=== PATIENT | female | born 1935 | race Caucasian/White ===

== ENCOUNTER → 2017-01-15 | Outpatient (CLI) | payer MEDICARE, BC | LOC: WCC 10:16 | DX: L97.329 Non-pressure chronic ulcer of left ankle with unspecified severity (principal); L97.819 Non-pressure chronic ulcer of other part of right lower leg with unspecified severity; I87.2 Venous insufficiency (chronic) (peripheral) | CPT/HCPCS: 17716; A6212; G0463 ==

== ENCOUNTER → 2017-01-23 | Outpatient (CLI) | payer MEDICARE, BC | LOC: WCC 09:20 | DX: L97.829 Non-pressure chronic ulcer of other part of left lower leg with unspecified severity (principal); L97.819 Non-pressure chronic ulcer of other part of right lower leg with unspecified severity; I87.2 Venous insufficiency (chronic) (peripheral) | CPT/HCPCS: 17716; A6212; G0463 ==

== ENCOUNTER → 2017-01-30 | Outpatient (CLI) | payer MEDICARE, BC | LOC: WCC 09:17 | DX: L97.819 Non-pressure chronic ulcer of other part of right lower leg with unspecified severity (principal); I87.2 Venous insufficiency (chronic) (peripheral) | CPT/HCPCS: 17716; 27510; A6197; A6212; G0463 ==

== ENCOUNTER → 2017-02-06 | Outpatient (CLI) | payer MEDICARE, BC | LOC: WCC 12:36 | DX: L97.819 Non-pressure chronic ulcer of other part of right lower leg with unspecified severity (principal); L97.829 Non-pressure chronic ulcer of other part of left lower leg with unspecified severity; I87.2 Venous insufficiency (chronic) (peripheral) | CPT/HCPCS: 17717; A6212; G0463 ==

== ENCOUNTER → 2017-02-20 | Outpatient (CLI) | payer MEDICARE, BC | LOC: WCC 08:46 | DX: L97.829 Non-pressure chronic ulcer of other part of left lower leg with unspecified severity (principal); L97.819 Non-pressure chronic ulcer of other part of right lower leg with unspecified severity; I87.2 Venous insufficiency (chronic) (peripheral) | CPT/HCPCS: 16847; 17716; 27510; A6197; A6212; G0463 ==

== ENCOUNTER → 2017-02-27 | Outpatient (CLI) | payer MEDICARE, BC | LOC: WCC 10:06 | DX: L97.819 Non-pressure chronic ulcer of other part of right lower leg with unspecified severity (principal); L97.829 Non-pressure chronic ulcer of other part of left lower leg with unspecified severity; I87.2 Venous insufficiency (chronic) (peripheral) | CPT/HCPCS: 17716; 27510; A6197; A6212; G0463 ==

== ENCOUNTER → 2017-03-13 | Outpatient (CLI) | payer MEDICARE, BC | LOC: WCC 09:02 | DX: L97.329 Non-pressure chronic ulcer of left ankle with unspecified severity (principal); L97.829 Non-pressure chronic ulcer of other part of left lower leg with unspecified severity; I87.2 Venous insufficiency (chronic) (peripheral) | CPT/HCPCS: 17716; 27510; A6197; A6212; G0463 ==

== ENCOUNTER → 2017-03-27 | Outpatient (CLI) | payer MEDICARE, BC | LOC: WCC 03-25 09:25 | DX: L97.829 Non-pressure chronic ulcer of other part of left lower leg with unspecified severity (principal); I87.2 Venous insufficiency (chronic) (peripheral) | CPT/HCPCS: 17716; A6212; G0463 ==

== ENCOUNTER → 2017-04-03 | Outpatient (CLI) | payer MEDICARE, BC | LOC: WCC 04-02 10:09 | DX: L97.829 Non-pressure chronic ulcer of other part of left lower leg with unspecified severity (principal); I87.2 Venous insufficiency (chronic) (peripheral) | CPT/HCPCS: 17717; A6212; G0463 ==

== ENCOUNTER → 2017-04-10 | Outpatient (CLI) | payer MEDICARE, BC | LOC: WCC 13:59 | DX: L97.829 Non-pressure chronic ulcer of other part of left lower leg with unspecified severity (principal) | CPT/HCPCS: 17716; A6212; G0463 ==

== ENCOUNTER → 2017-04-19 | Outpatient (CLI) | payer MEDICARE, BC | LOC: WCC 12:58 | DX: L97.829 Non-pressure chronic ulcer of other part of left lower leg with unspecified severity (principal); I87.2 Venous insufficiency (chronic) (peripheral) | CPT/HCPCS: 17717; 21064; A6021; A6212; G0463 ==

== ENCOUNTER → 2017-04-26 | Outpatient (CLI) | payer MEDICARE, BC | LOC: WCC 04-18 10:23 | DX: L97.929 Non-pressure chronic ulcer of unspecified part of left lower leg with unspecified severity (principal); I87.2 Venous insufficiency (chronic) (peripheral) | CPT/HCPCS: 17716; 27510; A6197; A6212; G0463 ==

== ENCOUNTER → 2017-09-16 | Outpatient (CLI) | payer MEDICARE, BC ==
[2017-09-16 09:55] LABS: INR 1.5 (0.8-3.0); PROTHROMBIN TIME 17.8 SECONDS (9.7-12.8)
== END ==
LOC: COL.LAB 09:34
PROVIDERS: Family Medicine
DX: I48.2 Chronic atrial fibrillation (principal)

== ENCOUNTER → 2017-09-30 | Outpatient (CLI) | payer MEDICARE, BC ==
[2017-09-30 11:22] LABS: INR 3.1 (0.8-3.0); PROTHROMBIN TIME 37.3 SECONDS (9.7-12.8)
== END ==
LOC: COL.LAB 10:08
PROVIDERS: Family Medicine
DX: I48.2 Chronic atrial fibrillation (principal)

== ENCOUNTER → 2017-10-14 | Outpatient (CLI) | payer MEDICARE, BC | LOC: COL.LAB 10:01 | DX: Z79.01 Long term (current) use of anticoagulants (principal) ==

== ENCOUNTER → 2017-10-25 | Outpatient (CLI) | payer MEDICARE, BC ==
[2017-10-25 10:27] LABS: INR 2.8 (0.8-3.0); PROTHROMBIN TIME 33.6 SECONDS (9.7-12.8)
== END ==
LOC: COL.LAB 09:27
PROVIDERS: Family Medicine
DX: Z79.01 Long term (current) use of anticoagulants (principal)

== ENCOUNTER → 2017-11-08 | Outpatient (CLI) | payer MEDICARE, BC ==
[2017-11-08 10:19] LABS: INR 2.4 (0.8-3.0); PROTHROMBIN TIME 28.8 SECONDS (9.7-12.8)
[2017-11-08 10:20] LABS: PH 7 (5-8); SQUAMOUS EPITHELIAL None Seen /hpf; URINE APPEARANCE Clear; URINE BACTERIA None Seen /hpf; URINE BILIRUBIN Negative (NEGATIVE); URINE BLOOD Negative (NEGATIVE); URINE COLOR Yellow; URINE GLUCOSE Negative (NEGATIVE); URINE KETONE Negative (NEGATIVE); URINE LEUKOCYTE ESTERASE Negative (NEGATIVE); URINE NITRATE Negative (NEGATIVE); URINE PROTEIN(semi-quant) Negative (NEGATIVE); URINE RBC 0-2 /hpf; URINE UROBILINOGEN Negative (NEGATIVE); URINE WBC None Seen /hpf
[2017-11-08 10:33] LABS: COLLECTION METHOD CLEAN CATCH
== END ==
LOC: COL.LAB 09:42
PROVIDERS: Family Medicine
DX: N39.0 Urinary tract infection, site not specified (principal)

== ENCOUNTER → 2017-12-04 | Outpatient (CLI) | payer MEDICARE, BC ==
[2017-12-04 10:28] LABS: INR 2.7 (0.8-3.0); PROTHROMBIN TIME 30.9 SECONDS (9.7-12.8)
[2017-12-04 22:14] LABS: PH 7 (5-8); SQUAMOUS EPITHELIAL None Seen /hpf; URINE APPEARANCE Clear; URINE BACTERIA None Seen /hpf; URINE BILIRUBIN Negative (NEGATIVE); URINE BLOOD Negative (NEGATIVE); URINE COLOR Yellow; URINE GLUCOSE Negative (NEGATIVE); URINE KETONE Negative (NEGATIVE); URINE LEUKOCYTE ESTERASE Negative (NEGATIVE); URINE NITRATE Negative (NEGATIVE); URINE PROTEIN(semi-quant) Negative (NEGATIVE); URINE RBC 0-2 /hpf; URINE UROBILINOGEN Negative (NEGATIVE); URINE WBC 0-2 /hpf
[2017-12-04 22:22] LABS: COLLECTION METHOD CLEAN CATCH
== END ==
LOC: COL.LAB 09:23
PROVIDERS: Family Medicine
DX: I48.2 Chronic atrial fibrillation (principal); Z79.01 Long term (current) use of anticoagulants

== ENCOUNTER → 2018-04-01 | Outpatient (CLI) | payer MEDICARE, BC ==
[2018-04-01 17:39] LABS: INR 3.2 (0.8-3.0); PROTHROMBIN TIME 36.7 SECONDS (9.7-12.8)
== END ==
LOC: COL.LAB 16:38
PROVIDERS: Family Medicine
DX: Z79.01 Long term (current) use of anticoagulants (principal)

== ENCOUNTER → 2018-04-24 | Outpatient (CLI) | payer MEDICARE, BC ==
[2018-04-24 09:59] LABS: BASO % 0.7 % (0.0-2.0); EOS # 0.2 (0.0-0.7); EOS % 3.4 % (0-4.0); GRAN # 2.2 (1.4-6.5); GRAN % 49.4 % (42.2-75.2); HEMATOCRIT 40.3 % (37.0-47.0); HEMOGLOBIN 13.3 g/dl (12.5-16.0); LYMPH # 1.5 (1.2-3.4); LYMPH % 33.1 % (20.0-51.0); MEAN CELL VOLUME 91 fl (80.0-100.0); MEAN CORPUSCULAR HEMOGLOBIN 30 pg (27.0-31.0); MEAN CORPUSCULAR HGB CONC 33 g/dl (33.0-37.0); MONO # 0.6 (0.1-0.6); MONO % 13.2 % (1.7-9.3); PLATELET COUNT 228 K/mm3 (130-400); RED BLOOD COUNT 4.43 M/mm3 (4.10-5.30); REDCELL DISTRIBUTION WIDTH-CV 13.1 % (11.5-14.5)
[2018-04-24 10:03] LABS: INR 2.6 (0.8-3.0); PROTHROMBIN TIME 29.4 SECONDS (9.7-12.8)
[2018-04-24 10:11] LABS: ALBUMIN 4.1 gm/dL (3.5-5.0); BILIRUBIN,TOTAL 0.6 mg/dL (0.0-1.0); CALCIUM 9.1 mg/dL (8.4-10.2); CREATININE, serum 0.77 mg/dL (0.52-1.25); POTASSIUM 4.1 mmol/L (3.4-5.0); TOTAL PROTEIN 7.6 gm/dL (6.4-8.2)
== END ==
LOC: COL.LAB 09:29
PROVIDERS: Family Medicine
DX: I10 Essential (primary) hypertension (principal); Z79.01 Long term (current) use of anticoagulants

== ENCOUNTER → 2018-05-08 | Outpatient (CLI) | payer MEDICARE, BC ==
[2018-05-08 13:00] LABS: PH 7 (5-8); SQUAMOUS EPITHELIAL None Seen /hpf; URINE APPEARANCE Clear; URINE BACTERIA None Seen /hpf; URINE BILIRUBIN Negative (NEGATIVE); URINE BLOOD Negative (NEGATIVE); URINE COLOR Yellow; URINE GLUCOSE Negative (NEGATIVE); URINE KETONE Negative (NEGATIVE); URINE LEUKOCYTE ESTERASE Negative (NEGATIVE); URINE NITRATE Negative (NEGATIVE); URINE PROTEIN(semi-quant) Negative (NEGATIVE); URINE RBC 0-2 /hpf; URINE UROBILINOGEN Negative (NEGATIVE); URINE WBC 0-2 /hpf
[2018-05-08 14:21] LABS: COLLECTION METHOD CLEAN CATCH
[2018-05-08 23:10] LABS: RHEUMATOID FACTOR-SCREEN 47 IU/mL (0-29)
== END ==
LOC: COL.LAB 12:01
PROVIDERS: Family Medicine
DX: M06.4 Inflammatory polyarthropathy (principal); I48.91 Unspecified atrial fibrillation; R50.9 Fever, unspecified; Z79.01 Long term (current) use of anticoagulants

== ENCOUNTER → 2018-07-04 | Outpatient (CLI) | payer MEDICARE, BC ==
[2018-07-04 15:06] LABS: COLLECTION METHOD CLEAN CATCH
[2018-07-04 15:12] LABS: BASO % 0.6 % (0.0-2.0); EOS # 0.2 (0.0-0.7); EOS % 3.7 % (0-4.0); GRAN # 2.6 (1.4-6.5); GRAN % 53.9 % (42.2-75.2); HEMOGLOBIN 11.1 g/dl (12.5-16.0); LYMPH # 1.4 (1.2-3.4); MEAN CELL VOLUME 93 fl (80.0-100.0); MEAN CORPUSCULAR HEMOGLOBIN 30 pg (27.0-31.0); MEAN CORPUSCULAR HGB CONC 33 g/dl (33.0-37.0); MEAN PLATELET VOLUME 8.8 fl (7.4-10.4); MONO # 0.6 (0.1-0.6); MONO % 12.6 % (1.7-9.3); PLATELET COUNT 298 K/mm3 (130-400); RED BLOOD COUNT 3.68 M/mm3 (4.10-5.30); REDCELL DISTRIBUTION WIDTH-CV 14.4 % (11.5-14.5)
[2018-07-04 15:16] LABS: INR 2.4 (0.8-3.0); PROTHROMBIN TIME 27.1 SECONDS (9.7-12.8)
[2018-07-04 15:20] LABS: PH 7 (5-8); SQUAMOUS EPITHELIAL None Seen /hpf; URINE APPEARANCE Clear; URINE BACTERIA None Seen /hpf; URINE BILIRUBIN Negative (NEGATIVE); URINE BLOOD 1+ (NEGATIVE); URINE COLOR Yellow; URINE GLUCOSE Negative (NEGATIVE); URINE KETONE Negative (NEGATIVE); URINE LEUKOCYTE ESTERASE 3+ (NEGATIVE); URINE NITRATE Negative (NEGATIVE); URINE PROTEIN(semi-quant) 1+ (NEGATIVE); URINE UROBILINOGEN Negative (NEGATIVE); URINE WBC 20-50 /hpf
[2018-07-04 15:26] LABS: HEMATOCRIT 34.1 % (37.0-47.0)
[2018-07-04 15:33] LABS: CALCIUM 9.2 mg/dL (8.4-10.2); CREATININE, serum 0.76 mg/dL (0.52-1.25); POTASSIUM 4.2 mmol/L (3.4-5.0)
== END ==
LOC: COL.LAB 14:33
PROVIDERS: Family Medicine
DX: I48.2 Chronic atrial fibrillation (principal); N39.0 Urinary tract infection, site not specified

== ENCOUNTER → 2018-08-11 | Outpatient (CLI) | payer MEDICARE, BC ==
[2018-08-11 15:27] LABS: PROTHROMBIN TIME 22.4 SECONDS (9.7-12.8)
== END ==
LOC: COL.LAB 14:44
PROVIDERS: Family Medicine
DX: Z79.01 Long term (current) use of anticoagulants (principal)

== ENCOUNTER → 2018-09-11 | Outpatient (CLI) | payer MEDICARE, BC ==
[2018-09-11 16:12] LABS: PROTHROMBIN TIME 23.1 SECONDS (9.7-12.8)
== END ==
LOC: COL.LAB 15:27
PROVIDERS: Family Medicine
DX: Z79.01 Long term (current) use of anticoagulants (principal)

== ENCOUNTER → 2018-10-21 | Outpatient (CLI) | payer MEDICARE, BC | LOC: COL.RAD 11:06 | DX: Q62.11 Congenital occlusion of ureteropelvic junction (principal); N13.30 Unspecified hydronephrosis ==

== ENCOUNTER → 2018-11-05 | Outpatient (CLI) | payer MEDICARE, BC ==
[2018-11-05 14:26] LABS: INR 1.7 (0.8-3.0); PROTHROMBIN TIME 19.6 SECONDS (9.7-12.8)
== END ==
LOC: COL.LAB 13:55
PROVIDERS: Family Medicine
DX: Z79.01 Long term (current) use of anticoagulants (principal)

== ENCOUNTER → 2018-11-27 | Outpatient (CLI) | payer MEDICARE, BC ==
[2018-11-27 15:58] LABS: INR 2.4 (0.8-3.0); PROTHROMBIN TIME 28.5 SECONDS (9.7-12.8)
== END ==
LOC: COL.LAB 15:32
PROVIDERS: Family Medicine
DX: Z79.01 Long term (current) use of anticoagulants (principal)

== ENCOUNTER → 2019-01-15 | Outpatient (CLI) | payer MEDICARE, BC ==
[2019-01-15 14:12] LABS: INR 2.9 (0.8-3.0); PROTHROMBIN TIME 35.3 SECONDS (9.7-12.8)
== END ==
LOC: COL.LAB 13:37
PROVIDERS: Family Medicine
DX: I48.91 Unspecified atrial fibrillation (principal)

== ENCOUNTER → 2019-01-23 | Outpatient (CLI) | payer MEDICARE, BC | LOC: COL.RAD 11:53 | DX: N13.30 Unspecified hydronephrosis (principal); Q62.11 Congenital occlusion of ureteropelvic junction ==

== ENCOUNTER → 2019-02-12 | Outpatient (CLI) | payer MEDICARE, BC ==
[2019-02-12 14:54] LABS: INR 2.9 (0.8-3.0); PROTHROMBIN TIME 35.1 SECONDS (9.7-12.8)
== END ==
LOC: COL.LAB 02-10 14:24
PROVIDERS: Family Medicine
DX: Z79.01 Long term (current) use of anticoagulants (principal)

== ENCOUNTER → 2019-03-17 | Outpatient (CLI) | payer MEDICARE, BC ==
[2019-03-17 12:44] LABS: INR 2.7 (0.8-3.0); PROTHROMBIN TIME 32.6 SECONDS (9.7-12.8)
== END ==
LOC: COL.LAB 11:47
PROVIDERS: Family Medicine
DX: Z79.01 Long term (current) use of anticoagulants (principal)

== ENCOUNTER → 2019-03-20 | Outpatient (CLI) | payer MEDICARE, BC | LOC: COL.RAD 12:32 | DX: Q62.11 Congenital occlusion of ureteropelvic junction (principal) | CPT/HCPCS: A9562 ==

== ENCOUNTER → 2019-04-07 | Outpatient (CLI) | payer MEDICARE, BC ==
[2019-04-07 14:14] LABS: CREATININE, serum 0.77 (0.52-1.25)
[2019-04-07 16:42] LABS: BASO % 0.6 % (0.0-2.0); EOS # 0.1 (0.0-0.7); EOS % 2.3 % (0-4.0); GRAN # 3.2 (1.4-6.5); GRAN % 61.2 % (42.2-75.2); HEMATOCRIT 37.2 % (37.0-47.0); HEMOGLOBIN 12.2 g/dl (12.5-16.0); LYMPH # 1.2 (1.2-3.4); LYMPH % 22.4 % (20.0-51.0); MEAN CELL VOLUME 92 fl (80.0-100.0); MEAN CORPUSCULAR HEMOGLOBIN 30 pg (27.0-31.0); MEAN CORPUSCULAR HGB CONC 33 g/dl (33.0-37.0); MEAN PLATELET VOLUME 9.5 fl (7.4-10.4); MONO # 0.7 (0.1-0.6); MONO % 13.1 % (1.7-9.3); PLATELET COUNT 251 K/mm3 (130-400); RED BLOOD COUNT 4.05 M/mm3 (4.10-5.30)
== END ==
LOC: COL.LAB 12:58
PROVIDERS: Family Medicine
DX: I10 Essential (primary) hypertension (principal)

== ENCOUNTER → 2019-05-19 | Outpatient (CLI) | payer MEDICARE, BC ==
[2019-05-19 14:16] LABS: INR 3.5 (0.8-3.0); PROTHROMBIN TIME 42.4 SECONDS (9.7-12.8)
[2019-05-20 03:07] LABS: FOLATE (FOLIC ACID) >20.0 ng/mL (7.0-31.4)
== END ==
LOC: COL.LAB 13:43
PROVIDERS: Family Medicine; Psychiatry & Neurology Neurology
DX: G62.9 Polyneuropathy, unspecified (principal); E55.9 Vitamin D deficiency, unspecified; E61.1 Iron deficiency; Z79.01 Long term (current) use of anticoagulants; E53.9 Vitamin B deficiency, unspecified; E61.2 Magnesium deficiency; G25.81 Restless legs syndrome

== ENCOUNTER → 2019-06-18 | Outpatient (CLI) | payer MEDICARE, BC ==
[2019-06-18 14:55] LABS: INR 3.5 (0.8-3.0)
== END ==
LOC: COL.LAB 14:20
PROVIDERS: Family Medicine
DX: I48.20 Chronic atrial fibrillation, unspecified (principal)

== ENCOUNTER → 2019-07-06 | Outpatient (CLI) | payer MEDICARE, BC ==
[2019-07-06 14:42] LABS: INR 2.1 (0.8-3.0)
== END ==
LOC: COL.LAB 13:49
PROVIDERS: Family Medicine
DX: Z51.81 Encounter for therapeutic drug level monitoring (principal); Z79.01 Long term (current) use of anticoagulants

== ENCOUNTER → 2019-08-07 | Outpatient (CLI) | payer MEDICARE, BC ==
[2019-08-07 16:30] LABS: INR 1.9 (0.8-3.0); PROTHROMBIN TIME 23.1 SECONDS (9.7-12.8)
== END ==
LOC: COL.LAB 15:51
PROVIDERS: Family Medicine
DX: Z79.01 Long term (current) use of anticoagulants (principal)

== ENCOUNTER → 2019-08-17 | Outpatient (CLI) | payer MEDICARE, BC ==
[2019-08-17 17:47] LABS: INR 2.3 (0.8-3.0)
== END ==
LOC: COL.LAB 16:10
DX: Z51.81 Encounter for therapeutic drug level monitoring (principal); Z79.01 Long term (current) use of anticoagulants

== ENCOUNTER → 2019-09-15 | Outpatient (CLI) | payer MEDICARE, BC ==
[2019-09-15 15:43] LABS: INR 2.4 (0.8-3.0); PROTHROMBIN TIME 28.4 SECONDS (9.7-12.8)
== END ==
LOC: COL.LAB 15:10
PROVIDERS: Family Medicine
DX: Z51.81 Encounter for therapeutic drug level monitoring (principal); Z79.01 Long term (current) use of anticoagulants

== ENCOUNTER 2020-07-13 17:52 | Emergency (ER) | payer MEDICARE, BC ==
[~2020-07-13] VITALS: Ht 154.9 cm; Wt 45.5 kg
[2020-07-13 18:27] VITALS: TEMP 97.3
[2020-07-13 18:58] LABS: HEMOGLOBIN 12.3 g/dl (12.5-16.0); MEAN CELL VOLUME 86 fl (80.0-100.0); MEAN CORPUSCULAR HEMOGLOBIN 30 pg (27.0-31.0); MEAN CORPUSCULAR HGB CONC 35 g/dl (33.0-37.0); MEAN PLATELET VOLUME 10.2 fl (7.4-10.4); PLATELET COUNT 106 K/mm3 (130-400); RED BLOOD COUNT 4.13 M/mm3 (4.10-5.30); REDCELL DISTRIBUTION WIDTH-CV 13.1 % (11.5-14.5)
[2020-07-13 19:02] LABS: HEMATOCRIT 35.3 % (37.0-47.0)
[2020-07-13 19:09] LABS: ALBUMIN 3.4 gm/dL (3.5-5.0); CALCIUM 8.4 mg/dL (8.4-10.2); CREATININE, serum 0.7 (0.52-1.25); POTASSIUM 3.8 mmol/L (3.4-5.0); TOTAL PROTEIN 6.6 gm/dL (6.4-8.2)
[2020-07-13 19:36] LABS: TROPONIN-I 0.193 ng/mL (0.000-0.035)
[2020-07-13 19:59] LABS: EOSINOPHIL 1 % (0-4); LYMPHOCYTE 7 % (20.0-51.0); NEUTROPHILS 79 % (42.0-75.2); PLATELET ESTIMATE NORMAL (NORMAL)
[2020-07-13 20:35] LABS: COLLECTION METHOD CLEAN CATCH
[2020-07-13 20:47] LABS: MUCOUS Present /lpf; PH 5 (5-8); SQUAMOUS EPITHELIAL None Seen /hpf; URINE APPEARANCE Clear; URINE BACTERIA None Seen /hpf; URINE BILIRUBIN Negative (NEGATIVE); URINE BLOOD Negative (NEGATIVE); URINE COLOR Yellow; URINE GLUCOSE Negative (NEGATIVE); URINE KETONE Trace (NEGATIVE); URINE LEUKOCYTE ESTERASE Negative (NEGATIVE); URINE NITRATE Negative (NEGATIVE); URINE PROTEIN(semi-quant) 2+ (NEGATIVE); URINE UROBILINOGEN Negative (NEGATIVE)
[2020-07-13 21:20] LABS: PROTHROMBIN TIME 45.5 SECONDS (9.7-12.8)
[2020-07-13 22:57] LABS: INR 1.5 (0.8-3.0); PROTHROMBIN TIME 16.4 SECONDS (9.7-12.8)
[2020-07-13 23:52] VITALS: BP 125/82; PULSE 75
== END 2020-07-14 | disposition short-term general hospital (02) ==
LOC: COL.ER 17:52
PROVIDERS: Nurse Practitioner
DX: I50.9 Heart failure, unspecified (principal); I61.3 Nontraumatic intracerebral hemorrhage in brain stem; Z88.0 Allergy status to penicillin; Z88.2 Allergy status to sulfonamides; W19.XXXA Unspecified fall, initial encounter
CPT/HCPCS: C9132; J7030

== ENCOUNTER 2024-01-14 12:20 | Emergency (ER) | payer MEDICARE, BC ==
[~2024-01-14] VITALS: Ht 167.6 cm; Wt 47.3 kg
[~2024-01-14 12:20] MED LIST: APRESOLINE50 MG PO; ASPIRIN E.C. 8181 MG PO; LASIX 20MG TABL20 MG PO; NEURONTIN300 MG/CAP PO; PRINIVIL20 MG PO; REFRESH TEARS 330 ML OP; REQUIP 1MG T1 MG/TAB PO; THERATEARS 15 M15 ML OP; TYLENOL 500MG500 MG PO; ZEBETA 5MG5 MG PO
[2024-01-14 12:30] VITALS: TEMP 97.7
[2024-01-14 13:03] LABS: BASO % 0.7 % (0.0-2.0); EOS # 0.1 K/mm3 (0.0-0.7); EOS % 1.4 % (0.0-4.0); GRAN # 1.9 K/mm3 (1.4-6.5); GRAN % 45.1 % (42.2-75.2); HEMOGLOBIN 11.9 g/dl (12.5-16.0); LYMPH # 1.7 K/mm3 (1.2-3.4); LYMPH % 41.2 % (20.0-51.0); MEAN CELL VOLUME 90 fl (80.0-100.0); MEAN CORPUSCULAR HEMOGLOBIN 30 pg (27-31); MEAN CORPUSCULAR HGB CONC 33 g/dl (33.0-37.0); MEAN PLATELET VOLUME 8.7 fl (7.4-10.4); MONO # 0.5 K/mm3 (0.1-0.6); MONO % 11.4 % (1.7-9.3); PLATELET COUNT 197 K/mm3 (130-400); RED BLOOD COUNT 4.04 M/mm3 (4.10-5.30)
[2024-01-14 13:05] LABS: HEMATOCRIT 36.5 % (37.0-47.0); INR 1.2 (0.8-3.0); PROTHROMBIN TIME 12.9 SECONDS (9.7-12.8)
[2024-01-14 13:29] LABS: ALBUMIN 3.1 g/dL (3.4-4.8); BILIRUBIN,TOTAL 0.6 mg/dL (0.2-1.2); CREATININE, serum 0.66 mg/dL (0.57-1.11); POTASSIUM 4.1 mEq/L (3.5-4.5); TOTAL PROTEIN 6.1 g/dl (6.2-8.1)
[2024-01-14] MEDS ORDERED: ELIQUIS 5MG PO (15:58)
[2024-01-14 16:10] VITALS: BP 154/80; PULSE 61
== END 2024-01-14 16:58 | disposition home or self-care (01) ==
LOC: COL.ER 12:20
PROVIDERS: Physician Assistant
DX: I82.402 Acute embolism and thrombosis of unspecified deep veins of left lower extremity (principal); Z79.891 Long term (current) use of opiate analgesic

== ENCOUNTER 2024-01-18 09:16 | Inpatient (IN) | payer MEDICARE, BC ==
[~2024-01-18] VITALS: Wt 51.8 kg
[~2024-01-18 09:16] MED LIST changes: +ELIQUIS 5MG PO
[2024-01-18 09:19] VITALS: TEMP 97.6
[2024-01-18] MEDS ORDERED: LR 1,000 ML IV ONE (09:30)
[2024-01-18 09:44] LABS: BASO % 0.4 % (0.0-2.0); EOS # 0.1 K/mm3 (0.0-0.7); EOS % 0.9 % (0.0-4.0); GRAN # 4.2 K/mm3 (1.4-6.5); GRAN % 55.7 % (42.2-75.2); HEMATOCRIT 35.9 % (37.0-47.0); HEMOGLOBIN 11.8 g/dl (12.5-16.0); LYMPH # 2.8 K/mm3 (1.2-3.4); MEAN CELL VOLUME 92 fl (80.0-100.0); MEAN CORPUSCULAR HEMOGLOBIN 30 pg (27-31); MEAN CORPUSCULAR HGB CONC 33 g/dl (33.0-37.0); MEAN PLATELET VOLUME 9.3 fl (7.4-10.4); MONO # 0.5 K/mm3 (0.1-0.6); MONO % 5.9 % (1.7-9.3); PLATELET COUNT 256 K/mm3 (130-400); RED BLOOD COUNT 3.92 M/mm3 (4.10-5.30); REDCELL DISTRIBUTION WIDTH-CV 14.8 % (11.5-14.5)
[2024-01-18 10:00] LABS: ALBUMIN 3.1 g/dL (3.4-4.8); BILIRUBIN,TOTAL 0.7 mg/dL (0.2-1.2); C-REACTIVE PROTEIN 0.33 mg/dL (0.00-0.50); CALCIUM 8.6 mg/dL (8.4-10.2); CREATININE, serum 0.7 mg/dL (0.57-1.11); POTASSIUM 4.1 mEq/L (3.5-4.5); TOTAL PROTEIN 6.4 g/dl (6.2-8.1)
[2024-01-18 10:34] VITALS: BP 209/98; PULSE 75
[2024-01-18] MEDS ORDERED: LORazepam 2 MG/ML 1 ML VIAL IV PRN (11:00)
[2024-01-18] MEDS ORDERED: Morphine 4 MG/ML VIAL IV PRN (11:00)
[2024-01-18] MEDS ORDERED: Albuterol 0.083% Neb Soln 2.5 MG/3 ML UD IH PRN (11:00)
[2024-01-18] MEDS ORDERED: Scopolamine 1 MG Delivered 3-Day PATCH TD SCH (11:00)
[2024-01-18] MEDS ORDERED: Carboxymethylcellulose PF Ophth 0.4 ML DROPPERETTE OP PRN (11:00)
[2024-01-18] MEDS ORDERED: Morphine Oral Concentrate 20 MG/ML UD SL PRN (11:00)
[2024-01-18] MEDS ORDERED: Ondansetron 4 MG/2 ML VIAL IV PRN (11:00)
[2024-01-18] MEDS ORDERED: Haloperidol Lactate 5 MG/ML VIAL IV PRN (11:00)
--- NOTE | 2024-01-18 11:04 | NUR ---
1040-PT ARRIVED FROM ER. PT TRANSFERED TO BED AND LINENS CHANGED. PT IS UNRESPONSIVE. PT IS AGONAL BREATHING. PT DOES NOT RESPOND TO PAIN, TOUCH OR VOICE. BILATERAL PUPILS FIXED AND NON REACTIVE. BEDSIDE TO [facility]. ER PHYSICAN SPOKE WITH PTS SON JAMAL(DPOA) AND HE HAS CHOSEN TO MAKE THE PT A DNR AND PLACE HER ON COMFORT CARE. PT POSITTIONED AND MUSIC TURNED ON.
--- NOTE | 2024-01-18 12:22 | NUR ---
No breath for over a min. Pt has no radial or jugular pulse. Attempted to ascultate heart sounds with no result. Second RN listened and no heart sounds noted. notified. TOD 1220. Sericulture Teacher notified. Pt laid flat, cleaned and IV's removed.
--- NOTE | 2024-01-18 12:40 | NUR ---
Called to the floor by medical staff. Patient had at 1220 today. Son, Jasper Perez called to make aware of patient's . He informed this nurse that they would be using [facility]. [phone]. [facility] called and stated that patient would not be a candidate due to patients age. Reference # [id number]. [facility] called and spoke with Jasper Henley. He stated he would be here in 1.5 hrs. to superintendent plant patient.
--- NOTE | 2024-01-18 12:45 | NUR ---
FENG was notified patient arrived from ER unresponsive, place on comfort care. SW notified son Jasper Rogers [phone] her DPOA. He informed SW that he just received call from nurse of his mother's passing. SW provided supportive adult school counselor, and inquired if he needed support with home contact. He informed SW that he already provided nurse information on [facility] in [place] would be assisting with final arrangements. FENG visited with charge nurse and confirmed she had contacted home. No further assistance at this time.
--- NOTE | 2024-01-18 13:36 | NUR ---
Data: General House Worker advised Mill Oiler that Patient was on comfort care. When Mill Oiler arrived at Patient's room, WIRE FENCE ERECTOR told Mill Oiler the Patient had just . Assessment: Patient . Plan of Care: Mill Oiler offered a prayer for Patient's journey from this world to her next.
--- NOTE | 2024-01-18 14:23 | NUR ---
HOME PICKED UP PT. PAPERWORK SIGNED.
== END 2024-01-18 14:25 | disposition expired | DRG 951 ==
LOC: COL.ER 09:16 → MEDICAL 10:05
PROVIDERS: Family Medicine; ADMIT Internal Medicine
DX: Z51.5 Encounter for palliative care (principal); I61.8 Other nontraumatic intracerebral hemorrhage; Z66 Do not resuscitate; R29.701 NIHSS score 1; Z88.2 Allergy status to sulfonamides; Z86.718 Personal history of other venous thrombosis and embolism; Z88.0 Allergy status to penicillin; Z79.01 Long term (current) use of anticoagulants; Z79.899 Other long term (current) drug therapy; Z79.82 Long term (current) use of aspirin
CPT/HCPCS: J2060; J2270; J7120